=== PATIENT | male | born 1990 ===

== ENCOUNTER 2018-06-09 16:09 | Emergency (ER) | payer MEDICAID ==
[~2018-06-09] VITALS: Ht 182.9 cm; Wt 77.3 kg
[2018-06-09 16:14] VITALS: BP 141/99; Ht 182.9 cm; Wt 77.3 kg
== END 2018-06-09 19:15 | disposition left against medical advice (07) ==
LOC: D.ER 16:09
DX: K08.89 Other specified disorders of teeth and supporting structures (principal)